=== PATIENT | female | born 1955 | race Caucasian/White ===

== ENCOUNTER 2016-08-22 14:40 | Inpatient (IN) | payer BC, MEDICAID ==
[~2016-08-22] VITALS: Ht 157.5 cm; Wt 51.5 kg
[~2016-08-22 14:40] MED LIST: ANAS1TAB PO; CEPH500C PO; DOCU-144 PO; FAMO-95 PO; FLORANEX PO; LEVO500T72 PO; LORA0.5T PO; MEGE40TA PO; MIRT15TA PO; ONDA-43 PO
--- NOTE | 2016-08-22 17:38 | ERA ---
ER Documentation Chief Complaint Date/Time DATE: 08/22/16 TIME: 17:37 Chief Complaint sob, hx ca metastazided to lungs? HPI The patient is a 60-year-old female, presenting to the ER because of chronic cough, shortness of breath for the last 2 weeks. She had similar symptoms previously when she had left pleural effusion that required thoracentesis. She denies fever, chills, chest pain, abdominal pain, vomiting, dysuria, diarrhea. She does not smoke nor drink Past medical history: History of metastatic breast cancer on chemotherapy, history of CHF, history of malignant left pleural effusion Past surgical history: Left mastectomy ROS All systems reviewed and are negative except as per history of present illness. Medications Home Meds Active Scripts Lorazepam* (Lorazepam*) 0.5 Mg Tablet, 0.5 MG PO Q8 Y for ANXIETY, #20 TAB Prov:AISHA DAAMS MD 03/30/15 Ondansetron Hcl* (Zofran*) 4 Mg Tab, 4 MG PO Q6H for NAUSEA, #45 TAB Prov:AISHA ADAMS MD 03/30/15 Anastrozole* (Arimidex*) 1 Mg Tab, 1 MG PO DAILY, #30 TAB Prov:AISHA ADAMS MD 03/30/15 Discontinued Scripts Docusate Sodium* (Colace*) 100 Mg Capsule, 100 MG PO DAILY, #30 CAP Prov:AISHA ADAMS MD 03/30/15 Levofloxacin* (Levaquin*) 500 Mg Tablet, 500 MG PO DAILY, #5 TAB Prov:AISHA ADAMS MD 03/30/15 Cephalexin* (Cephalexin*) 500 Mg Capsule, 500 MG PO q8h, #21 CAP Prov:AISHA ADAMS MD 03/30/15 Mirtazapine* (Remeron*) 15 Mg Tab, 15 MG PO HS, #30 TAB Prov:AISHA ADAMS MD 03/30/15 Megestrol Acetate* (Megace*) 40 Mg Tab, 40 MG PO TID, #90 TAB Prov:AISHA ADAMS MD 03/30/15 Lactobacillus Acidoph/Bulgaricus* (Floranex*) 1 Tab Chew, 1 TAB PO BID, #60 TAB Prov:AISHA ADAMS MD 03/30/15 Famotidine* (Pepcid* AC) 20 Mg Tab, 20 MG PO DAILY, #30 TAB Prov:AISHA ADAMS MD 03/30/15 Allergies Allergies: Coded Allergies: iodine (Verified Allergy, Unknown, 08/22/16) PMhx/Soc History of Surgery: No Anesthesia Reaction: No Hx Neurological Disorder: No Hx Respiratory Disorders: No Hx Cardiac Disorders: No Hx Psychiatric Problems: No Hx Miscellaneous Medical Probl: Yes (HX CA) Hx Alcohol Use: No Hx Substance Use: No Hx Tobacco Use: No Physical Exam Vitals Vital Signs Date Time Temp Pulse Resp B/P Pulse Ox O2 Delivery O2 Flow Rate FiO2 08/22/16 14:44 98.7 93 20 122/75 99 Physical Exam Const: No acute distress. Head: Atraumatic. Eyes: Normal Conjunctiva. ENT: Normal External Ears, Nose and Mouth. Neck: Full range of motion. No meningismus. Resp: Decreased breath sounds at left base Cardio: Regular rate and rhythm, no murmurs. Abd: Soft, non distended, normal bowel sounds, non tender. Skin: No petechiae or rashes. Back: No midline or flank tenderness. Ext: No cyanosis, or edema. Neur: Awake and alert. No focal deficit Psych: Normal Mood and Affect. Result Diagram: 08/22/165 08/22/161804 Results 24 hrs Laboratory Tests Test 08/22/16 18:05 White Blood Count 4.410^3/ul Red Blood Count 3.2810^6/ul Hemoglobin 10.5g/dl Hematocrit 32.7% Mean Corpuscular Volume 99.7fl Mean Corpuscular Hemoglobin 32.0pg Mean Corpuscular Hemoglobin Concent 32.1g/dl Red Cell Distribution Width 15.2% Platelet Count 53898^3/UL Mean Platelet Volume 9.4fl Neutrophils % 57.5% Lymphocytes % 25.7% Monocytes % 14.7% Eosinophils % 0.9% Basophils % 0.7% Nucleated Red Blood Cells % 0.0/100WBC Neutrophils # 2.610^3/ul Lymphocytes # 1.110^3/ul Monocytes # 0.710^3/ul Eosinophils # 0.010^3/ul Basophils # 0.010^3/ul Nucleated Red Blood Cells # 0.010^3/ul Prothrombin Time 14.2Sec Prothrombin Time Ratio 1.1 INR International Normalized Ratio 1.10 Activated Partial Thromboplast Time 30.3Sec Sodium Level 140mmol/L Potassium Level 4.1mmol/L Chloride Level 104mmol/L Carbon Dioxide Level 27mmol/L Anion Gap 13 Blood Urea Nitrogen 12mg/dl Creatinine 0.57mg/dl Glucose Level 99mg/dl Calcium Level 9.5mg/dl Troponin I < 0.012ng/ml B-Type Natriuretic Peptide 79PG/ML Procedures/[place] [id number] Radiology Main Line: [phone] DIAGNOSTIC IMAGING REPORT Patient: JANNETTE BURGOS : 1955 Age: 60 Sex: F MR #: [id number] DOS: 08/22/16 1745 Ordering MD: NEO EWING MD Location: E/R Room/Bed: PROCEDURE: XR Chest. CLINICAL INDICATION: Shortness of breath TECHNIQUE: Single frontal view of the chest was obtained. COMPARISON: August 20, 2015 FINDINGS: The cardiomediastinal silhouette is partially obscured. Pulmonary vasculature appears slightly prominent. There is a gtzaapsk-pp-cedqn left pleural effusion. There is hazy density through the left upper thorax. There is no definite pneumothorax identified. There is a left lung volume loss with elevation of the left hemidiaphragm. There are left axillary surgical clips.. The osseous structures and soft tissues are unremarkable. IMPRESSION: 1. Fwonyuvk-kh-letub left pleural effusion, increased. Atelectasis and/or consolidation through the left upper chest. 2. Left hemithorax volume loss with elevation of the left hemidiaphragm. 3. Mild pulmonary vascular congestion. RPTAT: HBST .Tremaine Disla MD, MD Date Time Electronically viewed and signed by .Tremaine Disla MD, on 08/22/2016 18:52 .T/ CC: NEO EWING MD EKG: Read by emergency physician Rate/Rhythm: Normal Sinus Rhythm 86 beats/min QRS, ST, T-waves: No ST elevation, no T inversion Impression: Normal EKG MEDICAL MAKING DECISION: The patient is a 60-year-old female, presenting with recurrent left pleural effusion, most likely recurrent malignancy pleural effusion. The differential diagnoses considered include but are not limited to asthma, COPD, pneumonia, pulmonary embolus, pleural effusion, congestive heart failure. Departure Diagnosis: Primary Impression: Pleural effusion Condition: Stable Comments I discussed the patient with her oncologist Dr. Noland would like to admit the patient to Dr. Saeid Dowling I discussed the findings with the patient. I discussed the patient with his physician Dr. Dowling who was made aware of the lab, the treatment, the patient condition. The patient is admitted to medical surgery bed. I have order for the ultrasound-guided thoracentesis in am per Dr. Dowling requests The patient's blood pressure was elevated (>120/80) but appears stable without evidence of hypertension emergency or urgency. The patient was counseled about the risks of hypertension and urged to pursue outpatient monitoring and therapy within a week after discharge with their primary care physician. NEO EWING MD Aug 22, 2016 17:38
[2016-08-22 18:13] LABS: ADD SCAN DIFF NO
[2016-08-22 18:16] LABS: BASOPHILS % 0.7 % (0.0-2.0); EOSINOPHILS % 0.9 % (0.0-7.0); HEMATOCRIT 32.7 % (37.0-47.0); HEMOGLOBIN 10.5 g/dl (12.0-16.0); LYMPHOCYTES # 1.1 10^3/ul (0.8-2.9); LYMPHOCYTES % 25.7 % (15.0-51.0); MEAN CORPUSCULAR HGB CONC 32.1 g/dl (32.0-37.0); MEAN CORPUSCULAR VOLUME 99.7 fl (82.0-101.0); MEAN PLATELET VOLUME 9.4 fl (7.4-10.4); MONOCYTE # 0.7 10^3/ul (0.3-0.9); MONOCYTES % 14.7 % (0.0-11.0); NEUTROPHIL # 2.6 10^3/ul (1.6-7.5); NEUTROPHILS % 57.5 % (39.0-77.0); PLATELET COUNT 111 10^3/UL (140-415); RED BLOOD COUNT 3.28 10^6/ul (4.20-5.40); RED CELL DISTRIBUTION WIDTH 15.2 % (11.5-14.5); WHITE BLOOD COUNT 4.4 10^3/ul (4.8-10.8)
[2016-08-22 18:31] LABS: INR 1.1; PROTIME 14.2 Sec (12.2-14.2); PT RATIO 1.1
[2016-08-22 18:32] LABS: PARTIAL THROMBOPLASTIN TIME 30.3 Sec (25.0-35.0)
--- NOTE | 2016-08-22 18:53 | RADRPT ---
PROCEDURE: XR Chest. CLINICAL INDICATION: Shortness of breath TECHNIQUE: Single frontal view of the chest was obtained. COMPARISON: August 20, 2015 FINDINGS: The cardiomediastinal silhouette is partially obscured. Pulmonary vasculature appears slightly prom inent. There is a nbuypsay-va-sltzg left pleural effusion. There is hazy density through the left u pper thorax. There is no definite pneumothorax identified. There is a left lung volume loss with el evation of the left hemidiaphragm. There are left axillary surgical clips.. The osseous structures and soft tissues are unremarkable. IMPRESSION: 1. Gdfjpwyz-sa-pkgdo left pleural effusion, increased. Atelectasis and/or consolidation through th e left upper chest. 2. Left hemithorax volume loss with elevation of the left hemidiaphragm. 3. Mild pulmonary vascular congestion. RPTAT: HBST .Tremaine Disla MD, Date Time Electronically viewed and signed by .Tremaine Disla MD, on 08/22/2016 18:52 .T/
[2016-08-22 18:58] LABS: CHLORIDE 104 mmol/L (97-110); POTASSIUM 4.1 mmol/L (3.5-5.1); SODIUM 140 mmol/L (135-144)
[2016-08-22 19:01] LABS: ANION GAP 13 (8-16); CARBON DIOXIDE 27 mmol/L (21-31); CREATININE 0.57 mg/dl (0.44-1.00)
[2016-08-22 19:02] LABS: BLOOD UREA NITROGEN 12 mg/dl (7-20); CALCIUM 9.5 mg/dl (8.4-10.2); GLUCOSE 99 mg/dl (70-220)
[2016-08-22 19:11] LABS: B-TYPE NATRIURETIC PEPTIDE 79 PG/ML (0-125)
[2016-08-22 19:15] LABS: TROPONIN-I < 0.012 ng/ml (0.00-0.12)
[2016-08-22 21:06] VITALS: PULSE 89
[2016-08-22 21:25] VITALS: BP 104/68; RESP 18
[2016-08-22 21:34] VITALS: Ht 157.5 cm; Wt 51.5 kg
[2016-08-22] MEDS ORDERED: LORAZEPAM 1 MG TAB PO PRN (23:00)
[2016-08-22] MEDS ORDERED: ONDANSETRON 4 MG TAB PO SCH (23:00)
[2016-08-22] MEDS ORDERED: LORAZEPAM 0.5 MG TAB PO PRN (23:00)
[2016-08-22] MEDS ORDERED: ONDANSETRON 4 MG TAB PO PRN (23:10)
[2016-08-23 07:32] VITALS: BP 104/66; RESP 16
[2016-08-23] MEDS ORDERED: ANASTROZOLE 1 MG TAB PO SCH (09:00)
[2016-08-23] MEDS ORDERED: HYDROCODONE/APAP (10/325) TAB PO PRN (10:30)
[2016-08-23] MEDS: ENOXAPARIN 40 MG/0.4 ML SYG SC SCH (11:00)
--- NOTE | 2016-08-23 12:51 | RADRPT ---
PROCEDURE: US left chest. CLINICAL INDICATION: Pleural effusion TECHNIQUE: Multiple real-time images were acquired of the patient's chest utilizing a high resolut ion transducer. COMPARISON: Recent x-ray FINDINGS: There is no evidence of a left pleural effusion. IMPRESSION: No left pleural effusion. RPTAT: AA Physician Abdifatah Date Time Electronically viewed and signed by Thomas Slaughter Physician on 08/23/2016 12:50 RA/
--- NOTE | 2016-08-23 13:11 | HP ---
DATE OF ADMISSION: 08/22/2016 CHIEF COMPLAINT: Shortness of breath. HISTORY OF PRESENT ILLNESS: This is a 60-year-old female with a past medical history of breast cancer status post lumpectomy, a history of recurrence in 2014 of the left lung, currently on chemotherapy, history of anxiety disorder who presents to [facility] for evaluation of cough and shortness of breath over the last 2 weeks. The patient states that during the last 2 weeks she was treated with oral antibiotics for possible pneumonia; however, her symptoms did not improve. As a result, she came to the emergency room for evaluation. Upon arrival, the patient had a chest x-ray which showed moderate to left large pleural effusion, atelectasis or consolidation of the left chest, and mild pulmonary vascular congestion. The patient was subsequently admitted to med/surg. The patient had an attempted thoracentesis, however, unable to remove fluid. The patient currently has no significant pain , no chest pain, no nausea, no vomiting, no dysuria, hematuria or hemoptysis. PAST MEDICAL HISTORY: History of breast cancer with recurrence, questionable history of CHF, history of malignant pleural effusion. PAST SURGICAL HISTORY: Left mastectomy. ALLERGIES: ALLERGIC TO IODINE. FAMILY HISTORY: Noncontributory. SOCIAL HISTORY: Does not drink, smoke, or do drugs. MEDICATIONS: The patient medications have been reviewed and reconciled. REVIEW OF SYSTEMS: A 14-point review of systems was conducted. Pertinent positives as stated in HPI, otherwise negative. PHYSICAL EXAMINATION: VITAL SIGNS: Blood pressure is 105/66, respirations 16, pulse 80, temperature 98.0. HEENT: Head is normocephalic. NECK: Supple. HEART: Regular rate. LUNGS: Show diminished breath sounds at the base on the left leg. Right clear to auscultation. ABDOMEN: Soft, nontender to palpation, no rebound or guarding. EXTREMITIES: Negative for clubbing, cyanosis, edema. DERMATOLOGIC: No rashes. MUSCULOSKELETAL: No joint effusions. NEUROLOGIC: No focal deficits. LABORATORY DATA: Shows a BMP within normal limits. White count 4.4, hemoglobin 10.5, hematocrit 32.7, platelet count is 111. IMAGING STUDIES: Chest x-ray shows a moderate to large size pleural effusion as stated in HPI. ASSESSMENT AND PLAN: This is a 60-year-old female who presents with: 1. History of breast cancer with pulmonary metastasis. The patient is currently on chemotherapy. Will continue. Follow up with hematology. 2. Malignant pleural effusion. The patient's chest x-ray shows findings of consolidation of the left chest and/or a large pleural effusion. Plan at this point is to place a pulmonary consult for evaluation. A thoracentesis was attempted, but unable to obtain any fluid. Will give nebulizer therapy p.r.n., supplemental oxygen. Will start the patient on antibiotic therapy and monitor closely. Consider Ct surgery evaluation. 3. Pancytopenia. Etiology may be secondary to recent chemotherapy. Will continue to monitor. 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 4. Anxiety disorder. Continue Ativan. 5. Gastrointestinal and deep venous thrombosis prophylaxis. Continue Protonix and Lovenox. Please note I spent 25 minutes in [id number] with the patient, the patient is full code. Dictated By: GERARDO OCONNOR/EDUARDO Conf#: [id number] DID#: [id number] MTDD
--- NOTE | 2016-08-23 13:16 | CONS ---
DATE OF ADMISSION: 08/22/2016 DATE OF CONSULTATION: 08/23/2016 TYPE OF CONSULTATION: Pulmonary. REASON FOR CONSULTATION: Cough and shortness of breath. Thank you, Dr. Haywood, for this consultation. HISTORY OF PRESENT ILLNESS: This is a pleasant 60-year-old lady with a history of breast cancer wit h metastatic pleural effusion, status post PleurX catheter placed in the end of 2014, status post r emoval per Dr. Schmidt recently secondary to minimal drainage on 08/20/2015. Patient presents n ow with increasing shortness of breath, orthopnea, PND. Chest x-ray shows left volume loss, possibl e underlying pleural effusion. She denies any nausea, vomiting, no chest pain, no palpitations, no orthopnea, no PND. PAST MEDICAL HISTORY: Breast cancer with chemotherapy, history of malignant pleural effusion with P leurX catheter, history of CHF. SURGICAL HISTORY: Left mastectomy. SYSTEMS REVIEW: Negative other than that mentioned above. PHYSICAL EXAMINATION: GENERAL: Thin, pleasant lady, comfortable at rest, talking in full and complete sentences. VITAL SIGNS: Currently afebrile. Pulse is 80, blood pressure 104/66, O2 saturation 96% on room air . NECK: Supple. No JVD or lymphadenopathy. CARDIAC: S1, S2, no added sounds or murmurs. CHEST: Diminished air entry bilaterally. ABDOMEN: Soft, nontender. No guarding or rebound. EXTREMITIES: No cyanosis, clubbing or edema. NEUROLOGIC: Grossly intact. No focal deficits. LABORATORY DATA: White count 4.4, hemoglobin 10.5, platelets 111. BUN 12, creatinine 0.57. INR 1. 01. DIAGNOSTIC DATA: Chest x-ray was reviewed, shows left pleural effusion, moderate to large, increasi ng in size. Ultrasound of the chest was performed, the results of which are pending at time of this dictation. IMPRESSION AND PLAN: 1. History of breast cancer. 2. Left pleural effusion, status post PleurX catheter. 3. Increasing pleural effusions following removal of recent PleurX catheter. PLAN: 1. CT chest to evaluate pleural disease and parenchymal disease. 2. Continue incentive spirometry. 3. Encourage out of bed. 4. The patient may need vascular decortication; however, given her generalized cachexia, this is a high risk procedure. Dictated By: JENNIFER HUFFMAN MD SV/EDUARDO Conf#: [id number] DID#: [id number]
[2016-08-23] MEDS: LEVOFLOXACIN 750 MG TABLET PO SCH (13:53)
--- NOTE | 2016-08-23 14:37 | CONS ---
Date/Time of Note Date/Time of Note DATE: 08/23/16 TIME: 14:37 Assessment/Plan Assessment/Plan Chief Complaint/Hosp Course ASSESSMENT AND PLAN: This is a 60-year-old female who presents with: Metastatic breast cancer with pulmonary metastasis. known bony mets The patient is currently on chemotherapy and AI HX Malignant pleural effusion. The patient's chest x-ray shows findings of consolidation of the left chest and/or a large pleural effusion. pulmonary F-UP A thoracentesis was attempted, but unable to obtain any fluid. CT CHEST Pancytopenia. POST recent chemotherapy. Will continue to monitor. Anxiety disorder. Continue Ativan. Gastrointestinal and deep venous thrombosis prophylaxis. Continue Protonix and Lovenox. Problems: Consultation Date/Type/Reason Admit Date/Time Aug 22, 2016 at 20:01 Date of Consultation: Aug 23, 2016 Type of Consultation: [facility] Reason for Consultation breast cancer Referring Provider: GERARDO RAY DO Hx of Present Illness This is a 60-year-old female with a past medical history of breast cancer status post lumpectomy, a history of recurrence in 2014 of the left lung, currently on chemotherapy, history of anxiety disorder who presents to [facility] for evaluation of cough and shortness of breath over the last 2 weeks. The patient states that during the last 2 weeks she was treated with oral antibiotics for possible pneumonia; however, her symptoms did not improve. As a result, she came to the emergency room for evaluation. Upon arrival, the patient had a chest x-ray which showed moderate to left large pleural effusion, atelectasis or consolidation of the left chest, and mild pulmonary vascular congestion. The patient was subsequently admitted to med/surg. The patient had an attempted thoracentesis, however, unable to remove fluid. The patient currently has no significant pain, no chest pain, no nausea, no vomiting, no dysuria, hematuria or hemoptysis. CT CHEST HAS BEEN ORDERED PT HAS BEEN SEEN BY PULM HER DIS WAS UNDER CONTROL FOR MORE THAN A YEAR PAST MEDICAL HISTORY: History of breast cancer with recurrence, questionable history of CHF, history of malignant pleural effusion. PAST SURGICAL HISTORY: Left mastectomy. ALLERGIES: ALLERGIC TO IODINE. FAMILY HISTORY: Noncontributory. SOCIAL HISTORY: Does not drink, smoke, or do drugs. MEDICATIONS: The patient medications have been reviewed and reconciled. REVIEW OF SYSTEMS: A 14-point review of systems was conducted. Pertinent positives as stated in HPI, otherwise negative. Social History Smoking Status: Never smoker Exam/Review of Systems Vital Signs Vitals Vital Signs Date Time Temp Pulse Resp B/P Pulse Ox O2 Delivery O2 Flow Rate FiO2 08/23/16 07:32 98.0 80 16 104/66 94 08/22/16 21:06 Room Air Intake and Output 08/22/16 08/22/16 08/23/16 15:00 23:00 07:00 Intake Total 0 ml Balance 0 ml Exam PHYSICAL EXAMINATION: HEENT: Head is normocephalic. NECK: Supple. HEART: Regular rate. LUNGS: Show diminished breath sounds at the base on the left side. Right clear to auscultation. ABDOMEN: Soft, nontender to palpation, no rebound or guarding. EXTREMITIES: Negative for clubbing, cyanosis, edema. DERMATOLOGIC: No rashes. MUSCULOSKELETAL: No joint effusions. NEUROLOGIC: No focal deficits. Results Result Diagram: 08/22/16 1805 08/22/16 1805 Results 24 hrs Laboratory Tests Test 08/22/16 18:05 White Blood Count 4.4 #L Red Blood Count 3.28 L Hemoglobin 10.5 L Hematocrit 32.7 L Mean Corpuscular Volume 99.7 Mean Corpuscular Hemoglobin 32.0 Mean Corpuscular Hemoglobin Concent 32.1 Red Cell Distribution Width 15.2 H Platelet Count 111 L Mean Platelet Volume 9.4 Neutrophils % 57.5 Lymphocytes % 25.7 Monocytes % 14.7 H Eosinophils % 0.9 Basophils % 0.7 Nucleated Red Blood Cells % 0.0 Neutrophils # 2.6 Lymphocytes # 1.1 Monocytes # 0.7 Eosinophils # 0.0 Basophils # 0.0 Nucleated Red Blood Cells # 0.0 Prothrombin Time 14.2 Prothrombin Time Ratio 1.1 INR International Normalized Ratio 1.10 Activated Partial Thromboplast Time 30.3 Sodium Level 140 Potassium Level 4.1 Chloride Level 104 Carbon Dioxide Level 27 Anion Gap 13 Blood Urea Nitrogen 12 Creatinine 0.57 Glucose Level 99 Calcium Level 9.5 Troponin I < 0.012 B-Type Natriuretic Peptide 79 Medications Medications Current Medications Anastrozole (Arimidex) 1 mg DAILY PO Last administered on 08/23/16t 11:40; Admin Dose 1 MG; Start 08/23/16 at 09:00 Lorazepam (Ativan) 1 mg HS PRN PO SLEEP; Start 08/22/16 at 23:00 Lorazepam (Ativan) 0.5 mg Q8 PRN PO ANXIETY Last administered on 08/23/16 03:25 ; Admin Dose 0.5 MG; Start 08/22/16 at 23:00 Ondansetron HCl (Zofran Tab) 4 mg Q6H PRN PO nausea; Start 08/22/16 at 23:10 Acetaminophen/ Hydrocodone Bitart ([place] (10/325)) 1 tab Q6H PRN PO pain Last administered on 08/23/16 11:51; Admin Dose 1 TAB; Start 08/23/16 at 10:30 Pantoprazole (Protonix Tab) 40 mg DAILY@06 PO ; Start 08/24/16 at 06:00 Enoxaparin Sodium (Lovenox) 40 mg DAILY SC ; Start 08/23/16 at 11:00 Levofloxacin (Levaquin) 750 mg DAILY@06 PO Last administered on 08/23/16 13:53 ; Admin Dose 750 MG; Start 08/23/16 at 13:00 Procedures Procedures IMAGING STUDIES: Chest x-ray shows a moderate to large size pleural effusion as stated in HPI. THIERRY CASTANEDA MD Aug 23, 2016 14:37
--- NOTE | 2016-08-23 15:38 | RADRPT ---
PROCEDURE: CT CHEST WITHOUT CONTRAST CLINICAL INDICATION: Pleural effusion TECHNIQUE: Volumetrically acquired images of the thorax obtained without intravenous contrast were reformatted in the axial, coronal, and sagittal planes. CTDI = 3.3 mGy; DLP = 138 mGy-cm. One or m ore of the following dose reduction technique were used: Automatic exposure control, adjustment of t he mA and/or kV according to patient size, and use of iterative reconstruction technique. COMPARISON: Chest x-ray from 08/22/2016. FINDINGS: LOWER NECK AND CHEST WALL: Normal. AIRWAYS: The trachea and large airways are normal. There is nonspecific narrowing of the left main stem bronchus. Minimal bronchial wall thickening is seen. LUNGS: The entire left lower lobe is consolidated and mildly collapse. Left paramediastinal consoli dation is seen. PLEURA: Small right pleural effusion is seen. There is moderate left pleural thickening with a comp steve left effusion with associated atelectasis. MEDIASTINUM: Minimal soft tissue thickening is seen in the mediastinum and surrounding the left main stem bronchus. LYMPH NODES: Several enlarged mediastinal lymph nodes are present. The following examples given in short axis diameter : Right lower paratracheal measuring 15 mm, periaortic measuring 18 mm. CARDIAC: Moderate cardiomegaly. There is a small moderate pericardial effusion measuring up to 11 mm . VASCULAR: The main pulmonary measures up to 31 mm. Aortic and coronary atherosclerotic calcificati ons are present. OSSEOUS: Diffuse sclerotic lesions are seen throughout the osseous structures, largest lesion in at L1 where it involves the entire vertebral body. Scattered degenerative changes of the thoracic spin e is visualized. Limited evaluation of the upper abdomen demonstrates a right hepatic mass measuring up to 6.4 cm. Sc attered hepatic cysts are seen. Retroperitoneal lymphadenopathy is demonstrated. IMPRESSION: 1. The entire left lower lobe is consolidated and collapsed with surrounding soft tissue surrounding the left mainstem bronchus suggesting tumor involvement. There are enlarged mediastinal and retrop eritoneal lymph nodes also suggestive of metastatic disease. The large right hepatic mass likely re presents metastasis, less likely primary liver tumor. Diffuse sclerotic bone lesions are also consi stent with metastasis. 2. Moderate cardiomegaly with small to moderate pericardial effusion. 3. Organized complicated left pleural effusion with associated atelectasis. 4.. Minimal bronchial wall thickening may be sequela of bronchitis, asthma, or other nonspecific ai rway inflammation. 5. Small right pleural effusion with associated atelectasis. RPTAT:PP .Blas Madison MD, MD Date Time Electronically viewed and signed by .Blas Madison MD, MD on 08/23/2016 15:37 .V/
[2016-08-23] MEDS: ONDANSETRON 4 MG INJ IV PRN ×2 (18:21→22:05)
[2016-08-23] MEDS ORDERED: ACETAMINOPHEN 325 MG TAB PO PRN (18:30)
[2016-08-23] MEDS ORDERED: ZOLPIDEM 5 MG TAB PO PRN (18:30)
[2016-08-23 19:44] VITALS: BP 98/67; RESP 18
[2016-08-24 05:42] LABS: ADD SCAN DIFF NO
[2016-08-24 05:46] LABS: ABNORMAL IP MESSAGE 1; HEMATOCRIT 32.4 % (37.0-47.0); HEMOGLOBIN 10.3 g/dl (12.0-16.0); MEAN CORPUSCULAR HEMOGLOBIN 31.7 pg (29.0-33.0); MEAN CORPUSCULAR HGB CONC 31.8 g/dl (32.0-37.0); MEAN CORPUSCULAR VOLUME 99.7 fl (82.0-101.0); MEAN PLATELET VOLUME 10.2 fl (7.4-10.4); PLATELET COUNT 92 10^3/UL (140-415); RED BLOOD COUNT 3.25 10^6/ul (4.20-5.40); RED CELL DISTRIBUTION WIDTH 15.2 % (11.5-14.5)
[2016-08-24 05:51] LABS: CREATININE 0.61 mg/dl (0.44-1.00)
[2016-08-24 05:52] LABS: PHOSPHORUS 3.8 mg/dl (2.5-4.9)
[2016-08-24 05:53] LABS: MAGNESIUM 1.8 mg/dl (1.7-2.5)
[2016-08-24] MEDS ORDERED: PANTOPRAZOLE (EC) 40 MG TAB PO SCH (06:00)
[2016-08-24] MEDS: ONDANSETRON 4 MG INJ IV PRN ×2 (06:26→10:52)
[2016-08-24] MEDS: LEVOFLOXACIN 750 MG TABLET PO SCH (06:26)
[2016-08-24 08:07] VITALS: BP 106/70; RESP 16
[2016-08-24] MEDS ORDERED: TAMOXIFEN 10 MG TAB PO SCH (09:00)
[2016-08-24] MEDS: ENOXAPARIN 40 MG/0.4 ML SYG SC SCH (09:17)
--- NOTE | 2016-08-24 12:02 | CONS ---
Date/Time of Note Date/Time of Note DATE: 08/24/16 TIME: 11:59 Assessment/Plan Assessment/Plan Chief Complaint/Hosp Course ASSESSMENT AND PLAN: This is a 60-year-old female who presents with: Metastatic breast cancer with pulmonary metastasis. known bony mets CT CHEST- DIS PROGRESSION The patient is currently on chemotherapy and AI HX Malignant pleural effusion. The patient's chest x-ray shows findings of consolidation of the left chest and/or a large pleural effusion. pulmonary F-UP A thoracentesis was attempted, but unable to obtain any fluid. CT CHEST- REVIEWED- C/W DIS PROGRESSION START FUNK CHANGE CHEMO Pancytopenia. POST recent chemotherapy. Will continue to monitor. Anxiety disorder. Continue Ativan. Gastrointestinal and deep venous thrombosis prophylaxis. Continue Protonix and Lovenox. OK TO DC Problems: Consultation Date/Type/Reason Admit Date/Time Aug 22, 2016 at 20:01 Initial Consult Date 08/23/16 Type of Consultation: [facility] Referring Provider: GERARDO RAY DO 24 HR Interval Summary Free Text/Dictation ALL NOTED CT - REVIEWED NO FLUID, JUST DIS PROGRESSION Exam/Review of Systems Vital Signs Vitals Vital Signs Date Time Temp Pulse Resp B/P Pulse Ox O2 Delivery O2 Flow Rate FiO2 08/24/16 08:07 98.0 83 16 106/70 95 08/22/16 21:06 Room Air Intake and Output 08/23/16 08/23/16 08/24/16 15:00 23:00 07:00 Intake Total 920 ml 420 ml Balance 920 ml 420 ml Exam HEENT: Head is normocephalic. NECK: Supple. HEART: Regular rate. LUNGS: Show diminished breath sounds at the base on the left side. Right clear to auscultation. ABDOMEN: Soft, nontender to palpation, no rebound or guarding. EXTREMITIES: Negative for clubbing, cyanosis, edema. DERMATOLOGIC: No rashes. MUSCULOSKELETAL: No joint effusions. NEUROLOGIC: No focal deficits. Results Result Diagram: 08/24/16 0517 08/24/16 0517 Results 24 hrs Laboratory Tests Test 08/24/16 05:17 White Blood Count 3.0 #L Red Blood Count 3.25 L Hemoglobin 10.3 L Hematocrit 32.4 L Mean Corpuscular Volume 99.7 Mean Corpuscular Hemoglobin 31.7 Mean Corpuscular Hemoglobin Concent 31.8 L Red Cell Distribution Width 15.2 H Platelet Count 92 L Mean Platelet Volume 10.2 Sodium Level 140 Potassium Level 4.0 Chloride Level 103 Carbon Dioxide Level 28 Anion Gap 13 Blood Urea Nitrogen 12 Creatinine 0.61 Glucose Level 83 Calcium Level 9.0 Phosphorus Level 3.8 Magnesium Level 1.8 Medications Medications Current Medications Lorazepam (Ativan) 1 mg HS PRN PO SLEEP Last administered on 08/23/16 22:36; Admin Dose 1 MG; Start 08/22/16 at 23:00 Lorazepam (Ativan) 0.5 mg Q8 PRN PO ANXIETY Last administered on 08/23/16 03:25 ; Admin Dose 0.5 MG; Start 08/22/16 at 23:00 Ondansetron HCl (Zofran Tab) 4 mg Q6H PRN PO nausea; Start 08/22/16 at 23:10 Acetaminophen/ Hydrocodone Bitart ([place] (10/325)) 1 tab Q6H PRN PO pain Last administered on 08/23/16 11:51; Admin Dose 1 TAB; Start 08/23/16 at 10:30 Pantoprazole (Protonix Tab) 40 mg DAILY@06 PO Last administered on 08/24/16 06: 26; Admin Dose 40 MG; Start 08/24/16 at 06:00 Enoxaparin Sodium (Lovenox) 40 mg DAILY SC Last administered on 08/24/16 09:17 ; Admin Dose 40 MG; Start 08/23/16 at 11:00 Levofloxacin (Levaquin) 750 mg DAILY@06 PO Last administered on 08/24/16 06:26 ; Admin Dose 750 MG; Start 08/23/16 at 13:00 Ondansetron HCl (Zofran Inj) 4 mg Q4H PRN IV NAUSEA AND/OR VOMITING Last administered on 08/24/16 10:52; Admin Dose 4 MG; Start 08/23/16 at 18:30 Acetaminophen (Tylenol Tab) 650 mg Q6H PRN PO PAIN AND OR ELEVATED TEMP; Start 08/23/16 at 18:30 Zolpidem Tartrate (Ambien) 5 mg HS PRN PO INSOMNIA; Start 08/23/16 at 18:30 Tamoxifen Citrate (Nolvadex) 20 mg DAILY PO Last administered on 4/6/17at 09:04 ; Admin Dose 20 MG; Start 08/24/16 at 09:00 THIERRY CASTANEDA MD Aug 24, 2016 12:02
--- NOTE | 2016-08-24 12:35 | CONS ---
Date/Time of Note Date/Time of Note DATE: 08/24/16 TIME: 12:19 Consult Date/Type/Reason Admit Date/Time Aug 22, 2016 at 20:01 Initial Consult Date 08/23/16 Type of Consultation: Pulm Ordering Provider: GERARDO RAY DO Subjective Still with some shortness of breath on exertion. Objective Vital Signs Date Time Temp Pulse Resp B/P Pulse Ox O2 Delivery O2 Flow Rate FiO2 08/24/16 08:07 98.0 83 16 106/70 95 08/22/16 21:06 Room Air Intake and Output 08/23/16 08/23/16 08/24/16 15:00 23:00 07:00 Intake Total 920 ml 420 ml Balance 920 ml 420 ml Exam PHYSICAL EXAMINATION: GENERAL: Thin, pleasant lady, comfortable at rest, talking in full and complete sentences. VITAL SIGNS: as above NECK: Supple. No JVD or lymphadenopathy. CARDIAC: S1, S2, no added sounds or murmurs. CHEST: Diminished air entry bilaterally. ABDOMEN: Soft, nontender. No guarding or rebound. EXTREMITIES: No cyanosis, clubbing or edema. NEUROLOGIC: Grossly intact. No focal deficits. Results/Medications Result Diagram: 08/24/16 0517 08/24/[address] chest IMPRESSION: 1. The entire left lower lobe is consolidated and collapsed with surrounding soft tissue surrounding the left mainstem bronchus suggesting tumor involvement. There are enlarged mediastinal and retroperitoneal lymph nodes also suggestive of metastatic disease. The large right hepatic mass likely represents metastasis, less likely primary liver tumor. Diffuse sclerotic bone lesions are also consistent with metastasis. 2. Moderate cardiomegaly with small to moderate pericardial effusion. 3. Organized complicated left pleural effusion with associated atelectasis. 4.. Minimal bronchial wall thickening may be sequela of bronchitis, asthma, or other nonspecific airway inflammation. 5. Small right pleural effusion with associated atelectasis. Laboratory Tests Test 08/24/16 05:17 White Blood Count 3.0 #L Red Blood Count 3.25 L Hemoglobin 10.3 L Hematocrit 32.4 L Mean Corpuscular Volume 99.7 Mean Corpuscular Hemoglobin 31.7 Mean Corpuscular Hemoglobin Concent 31.8 L Red Cell Distribution Width 15.2 H Platelet Count 92 L Mean Platelet Volume 10.2 Sodium Level 140 Potassium Level 4.0 Chloride Level 103 Carbon Dioxide Level 28 Anion Gap 13 Blood Urea Nitrogen 12 Creatinine 0.61 Glucose Level 83 Calcium Level 9.0 Phosphorus Level 3.8 Magnesium Level 1.8 Medications Current Medications Lorazepam (Ativan) 1 mg HS PRN PO SLEEP Last administered on 08/23/16 22:36; Admin Dose 1 MG; Start 08/22/16 at 23:00 Lorazepam (Ativan) 0.5 mg Q8 PRN PO ANXIETY Last administered on 08/23/16 03:25 ; Admin Dose 0.5 MG; Start 08/22/16 at 23:00 Ondansetron HCl (Zofran Tab) 4 mg Q6H PRN PO nausea; Start 08/22/16 at 23:10 Acetaminophen/ Hydrocodone Bitart ([place] (10)) 1 tab Q6H PRN PO pain Last administered on 08/23/16 11:51; Admin Dose 1 TAB; Start 08/23/16 at 10:30 Pantoprazole (Protonix Tab) 40 mg DAILY@06 PO Last administered on 08/24/16 06: 26; Admin Dose 40 MG; Start 08/24/16 at 06:00 Enoxaparin Sodium (Lovenox) 40 mg DAILY SC Last administered on 08/24/16 09:17 ; Admin Dose 40 MG; Start 08/23/16 at 11:00 Levofloxacin (Levaquin) 750 mg DAILY@06 PO Last administered on 08/24/16 06:26 ; Admin Dose 750 MG; Start 08/23/16 at 13:00 Ondansetron HCl (Zofran Inj) 4 mg Q4H PRN IV NAUSEA AND/OR VOMITING Last administered on 08/24/16 10:52; Admin Dose 4 MG; Start 08/23/16 at 18:30 Acetaminophen (Tylenol Tab) 650 mg Q6H PRN PO PAIN AND OR ELEVATED TEMP; Start 08/23/16 at 18:30 Zolpidem Tartrate (Ambien) 5 mg HS PRN PO INSOMNIA; Start 08/23/16 at 18:30 Tamoxifen Citrate (Nolvadex) 20 mg DAILY PO Last administered on 08/24/16 09:04 ; Admin Dose 20 MG; Start 08/24/16 at 09:00 Assessment/Plan Chief Complaint/Hosp Course IMPRESSION AND PLAN: 1. History of breast cancer. 2. Hx Left pleural effusion, status post PleurX catheter.Repeat CT shows progressive disease. Worsening disease no amenable surgical intervention. PLAN: 1. CT chest as above. Discussed with heme onc, adjustment of chemo. 2. Agree with dc planning. Problems: JENNIFER HUFFMAN MD, [facility] Aug 24, 2016 12:35
[2016-08-24 12:53] LABS: LYMPHOCYTES # 0.9 10^3/ul (0.8-2.9); MONOCYTE # 0.6 10^3/ul (0.3-0.9); NEUTROPHIL # 1.2 10^3/ul (1.6-7.5)
--- NOTE | 2016-08-24 17:20 | DS ---
Date/Time of Note Date/Time of Note DATE: 08/24/16 TIME: 17:18 Discharge Summary Admission/Discharge Info Admit Date/Time Aug 22, 2016 at 20:01 Discharge Date/Time Aug 24, 2016 at 12:35 Final Diagnosis 1. History of breast cancer with pulmonary metastasis. The patient is currently on chemotherapy. Will continue. Follow up with hematology. to change chemotherapyy 2. Malignant pleural effusion. The patient's chest x-ray shows findings of consolidation of the left chest and/or a large pleural effusion. seen pulmonary consult for evaluation. A thoracentesis was attempted, but unable to obtain any fluid. 3. Pancytopenia. Etiology may be secondary to recent chemotherapy. Will continue to monitor. Follow up with home health provider. 4. Anxiety disorder. Continue Ativan. 5. Gastrointestinal and deep venous thrombosis prophylaxis. Continue Protonix and Lovenox. Hx of Present Illness This is a 60-year-old female with a past medical history of breast cancer status post lumpectomy, a history of recurrence in 2014 of the left lung, currently on chemotherapy, history of anxiety disorder who presents to [facility] for evaluation of cough and shortness of breath over the last 2 weeks. The patient states that during the last 2 weeks she was treated with oral antibiotics for possible pneumonia; however, her symptoms did not improve. As a result, she came to the emergency room for evaluation. Upon arrival, the patient had a chest x-ray which showed moderate to left large pleural effusion, atelectasis or consolidation of the left chest, and mild pulmonary vascular congestion. The patient was subsequently admitted to med/ surg. The patient had an attempted thoracentesis, however, unable to remove fluid. The patient currently has no significant pain, no chest pain, no nausea , no vomiting, no dysuria, hematuria or hemoptysis. seen by pulm and vanesa. recommended to change outpatient chemotherapy before referring to ct surgery. discharged to see vanesa today. PAST MEDICAL HISTORY: History of breast cancer with recurrence, questionable history of CHF, history of malignant pleural effusion. PAST SURGICAL HISTORY: Left mastectomy. ALLERGIES: ALLERGIC TO IODINE. PHYSICAL EXAMINATION:. HEENT: Head is normocephalic. NECK: Supple. HEART: Regular rate. LUNGS: Show diminished breath sounds at the base on the left leg. Right clear to auscultation. ABDOMEN: Soft, nontender to palpation, no rebound or guarding. EXTREMITIES: Negative for clubbing, cyanosis, edema. DERMATOLOGIC: No rashes. MUSCULOSKELETAL: No joint effusions. NEUROLOGIC: No focal deficits. White count 4.4, hemoglobin 10.5, hematocrit 32.7, platelet count is 111. IMAGING STUDIES: Chest x-ray shows a moderate to large size pleural effusion as statedI. Hospital Course IMPRESSION AND PLAN: 1. History of breast cancer. 2. Hx Left pleural effusion, status post PleurX catheter.Repeat CT shows progressive disease. Worsening disease no amenable surgical intervention. PLAN: 1. CT chest as above. Discussed with heme onc, adjustment of chemo. 2. Agree with dc planning. Home Meds Active Scripts Lorazepam* (Lorazepam*) 0.5 Mg Tablet, 0.5 MG PO Q8 Y for ANXIETY, #20 TAB Prov:AISHA ADAMS MD 03/30/15 Ondansetron Hcl* (Zofran*) 4 Mg Tab, 4 MG PO Q6H for NAUSEA, #45 TAB Prov:AISHA ADAMS MD 03/30/15 Discontinued Scripts Anastrozole* (Arimidex*) 1 Mg Tab, 1 MG PO DAILY, #30 TAB Prov:AISHA ADAMS MD 03/30/15 Docusate Sodium* (Colace*) 100 Mg Capsule, 100 MG PO DAILY, #30 CAP Prov:AISHA ADAMS MD 03/30/15 Levofloxacin* (Levaquin*) 500 Mg Tablet, 500 MG PO DAILY, #5 TAB Prov:AISHA ADAMS MD 03/30/15 Cephalexin* (Cephalexin*) 500 Mg Capsule, 500 MG PO q8h, #21 CAP Prov:AISHA ADAMS MD 03/30/15 Mirtazapine* (Remeron*) 15 Mg Tab, 15 MG PO HS, #30 TAB Prov:AISHA ADAMS MD 03/30/15 Megestrol Acetate* (Megace*) 40 Mg Tab, 40 MG PO TID, #90 TAB Prov:AISHA ADAMS MD 03/30/15 Lactobacillus Acidoph/Bulgaricus* (Floranex*) 1 Tab Chew, 1 TAB PO BID, #60 TAB Prov:AISHA ADAMS MD 03/30/15 Famotidine* (Pepcid* AC) 20 Mg Tab, 20 MG PO DAILY, #30 TAB Prov:AISHA ADAMS MD 03/30/15 Pending Labs Laboratory Tests Test 08/24/16 05:17 White Blood Count 3.010^3/ul (4.8-10.8) Red Blood Count 3.2510^6/ul (4.20-5.40) Hemoglobin 10.3g/dl (12.0-16.0) Hematocrit 32.4% (37.0-47.0) Mean Corpuscular Volume 99.7fl (82.0-101.0) Mean Corpuscular Hemoglobin 31.7pg (29.0-33.0) Mean Corpuscular Hemoglobin Concent 31.8g/dl (32.0-37.0) Red Cell Distribution Width 15.2% (11.5-14.5) Platelet Count 9210^3/UL (140-415) Mean Platelet Volume 10.2fl (7.4-10.4) Neutrophils % 39.0% (39.0-77.0) Band Neutrophils % 5.0% (0.0-5.0) Lymphocytes % 30.0% (15.0-51.0) Reactive Lymphocytes % 1.0% (0.0) Monocytes % 20.0% (0.0-11.0) Metamyelocytes % 3.0% (0.0-0.0) Myelocytes % 1.0% (0.0-0.0) Promyelocytes % 1.0% (0.0-0.0) Neutrophils # 1.210^3/ul (1.6-7.5) Lymphocytes # 0.910^3/ul (0.8-2.9) Monocytes # 0.610^3/ul (0.3-0.9) Metamyelocytes # 0.1 Myelocytes # 0.0 Promyelocytes # 0.0 Sodium Level 140mmol/L (135-144) Potassium Level 4.0mmol/L (3.5-5.1) Chloride Level 103mmol/L (97-110) Carbon Dioxide Level 28mmol/L (21-31) Anion Gap 13 (8-16) Blood Urea Nitrogen 12mg/dl (7-20) Creatinine 0.61mg/dl (0.44-1.00) Glucose Level 83mg/dl (70-220) Calcium Level 9.0mg/dl (8.4-10.2) Phosphorus Level 3.8mg/dl (2.5-4.9) Magnesium Level 1.8mg/dl (1.7-2.5) DAYA RAMIREZ MD Aug 24, 2016 17:20
== END 2016-08-24 12:35 | disposition home or self-care (01) | DRG 598 ==
LOC: E/R 14:40 → MS2 20:01
PROVIDERS: ADMIT Internal Medicine Nephrology; ATTEND Internal Medicine Nephrology
DX: C50.919 Malignant neoplasm of unspecified site of unspecified female breast (principal); J91.0 Malignant pleural effusion; D61.818 Other pancytopenia; I50.9 Heart failure, unspecified; F41.9 Anxiety disorder, unspecified; Z85.3 Personal history of malignant neoplasm of breast
CPT/HCPCS: 36415; 71010; 71250; 76604; 80048; 83735; 83880; 84100; 84484; 85025; 85610; 85730; 93005; J1650; J2405